=== PATIENT | male | born 1970 | race Caucasian/White ===

== ENCOUNTER 2016-12-29 11:43 | Emergency (ER) | payer MEDICAID, OTHER ==
[~2016-12-29] VITALS: Ht 180.3 cm; Wt 145.0 kg
[2016-12-29 11:46] VITALS: BP 137/85; PULSE 86; RESP 20; TEMP 98.2; O2SAT 98
[2016-12-29] MEDS ORDERED: KETOROLAC TROMETHAMINE 60 MG/2 ML (IM) VIAL IM ONE (13:00)
[2016-12-29] MEDS ORDERED: IBUP800T23 PO (13:29)
--- NOTE | 2016-12-29 13:34 | RADRPT ---
EXAM DATE/TIME: 12/29/2016 13:09 [facility] COMPARISON: No previous studies available for comparison. INDICATIONS : Numbness and pain in his right hand, no known trauma. MEDICAL HISTORY : None. SURGICAL HISTORY : None. ENCOUNTER: Initial ACUITY: 3 weeks PAIN SCORE: 3/10 LOCATION: Right hand FINDINGS: Three view examination of the right hand demonstrates no soft tissue swelling, dislocation, or fractu re. The carpal bones appear intact. The interphalangeal and metacarpophalangeal joints are intact. Bony mineralization is normal. CONCLUSION: No acute disease. Walter Gunter MD on December 29, 2016 at 13:32 Board Certified Radiologist. This report was verified electronically.
--- NOTE | 2016-12-29 13:42 | PD ---
HPI Chief Complaint: Numbness/Tingling Time Seen by Provider: 13:35 Travel History International Travel<30 days: No Contact w/Intl Traveler<30days: No Traveled to known affect area: No History of Present Illness HPI 46-year-old male that presents to the ED for evaluation of numbness and tingling to his right index and middle finger. Per patient she's had this for almost 3 weeks now. Per patient she initially noticed this about a year ago he had surgery on his right knee. Per patient after she noted that he had something into his right middle finger. Per patient he is diabetic and he is concerned that this could be related to his diabetes. He states that the symptoms usually use to improve on their own but this time he has not. Per patient he comes and goes but is more numb now. Per patient he got concerned because starts spreading to his index and his thumb as well as the ring finger. 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 He denies any injuries or falls. No fevers chills or sweats. Per patient he recently moved here from [place]. He has no other medical issues. He states that his pain currently is 4 out of 10. PFSH Past Medical History Hx Anticoagulant Therapy: Yes (ASA) Cardiovascular Problems: Yes (HTN) High Cholesterol: Yes Diabetes: Yes (METFORMIN) Patient Takes Glucophage: Yes Diminished Hearing: No Hypertension: Yes Sleep Apnea: Yes Tetanus Vaccination: Unknown Past Surgical History Other Surgery: Yes (TONSILECTOMY ) Social History Alcohol Use: Yes (OCC) Tobacco Use: No (QUIT 2 YEAR AGO) Substance Use: No Allergies-Medications (Allergen,Severity, Reaction): Coded Allergies: Contrast Media (Verified Allergy, Severe, SWELLING, RASH, 12/29/16) Seafood (Verified Allergy, Severe, 12/29/16) Penicillin (Verified Allergy, Unknown, 12/29/16) Reported Meds & Prescriptions Reported Meds & Active Scripts Active Ibuprofen 800 Mg Tab 800 Mg PO Q8H PRN Review of Systems Except as stated in HPI: all other systems reviewed are Neg Physical Exam Narrative GENERAL: SKIN: Warm and dry. HEAD: Atraumatic. Normocephalic. EYES: Pupils equal and round. No scleral icterus. No injection or drainage. ENT: No nasal bleeding or discharge. Mucous membranes pink and moist. Tongue is midline. No uvula deviation. NECK: Trachea midline. No JVD. CARDIOVASCULAR: Regular rate and rhythm. No murmurs, S3, S4. RESPIRATORY: No accessory muscle use. Clear to auscultation. Breath sounds equal bilaterally. GASTROINTESTINAL: Abdomen soft, non-tender, nondistended. Hepatic and splenic margins not palpable. MUSCULOSKELETAL: Extremities without clubbing, cyanosis, or edema. No obvious deformities. Full range of motion of all fingers of the right hand. Patient able to make a fist. 5 out of 5 strength. Subjective numbness noted on the third, second, first as well as half of the fourth digit. Following median nerve distribution. Phalens test positive on the right side. 2+ pulses with good capillary refill. NEUROLOGICAL: Awake and alert. No obvious cranial nerve deficits. Motor grossly within normal limits. Five out of 5 muscle strength in the arms and legs. Normal speech. PSYCHIATRIC: Appropriate mood and affect; insight and judgment normal. Data Data Last Documented VS Vital Signs Date Time Temp Pulse Resp B/P Pulse Ox O2 Delivery O2 Flow Rate FiO2 12/29/16 11:46 98.2 86 20 137/85 98 Room Air Orders Ketorolac Inj (Toradol Inj) (12/29/16 13:00) Hand, Complete ([id number]) (12/29/16 ) Splint Or Brace Apply/Monitor (12/29/16 12:50) MDM Medical Decision Making Medical Screen Exam Complete: Yes Emergency Medical Condition: Yes Medical Record Reviewed: Yes Interpretation(s) hand xray negative Differential Diagnosis Carpal tunnel versus peripheral neuropathy versus bony injury versus arthritis versus normal exam Narrative Course 46-year-old male that presents to the ED for evaluation of right hand numbness. Patient was properly examined and was found to have signs and symptoms consistent what appears to be carpal tunnel syndrome. No sign of acute medical distress. X-ray was done to any sign of bony injury. X-ray was negative. Patient was reassured. This time patient will be put on a brace. Given prescription for ibuprofen to help with the swelling and nerve pain. He was told that this before she will take some time to heal. He was told to follow with hand surgeon once he gets insurance. See ED for worsening symptoms. Given information for outpatient clinics. Diagnosis Primary Impression: Carpal tunnel syndrome Qualified Code: G56.01 - Carpal tunnel syndrome of right wrist Referrals: Opal Dowling MD [facility] Patient Instructions: General Instructions Additional Instructions: Take medication as prescribed. Follow with hand surgeon. See ED worsening symptoms. Use brace until symptoms completely get better. He continues this daily especially at night. Ice or warm compresses. See ED worsening symptoms. Med/Other Pt SpecificInfo: Prescription(s) given Scripts Ibuprofen 800 Mg Ume145 Mg PO Q8H PRN (Pain/Inflammation) #30 TAB Prov:Namita Schulte MD 12/29/16 Disposition: 01 DISCHARGE HOME Condition: Stable Jacob Guo Dec 29, 2016 13:42
== END 2016-12-29 15:10 | disposition home or self-care (01) ==
LOC: NEPD 11:43
DX: G56.01 Carpal tunnel syndrome, right upper limb (principal); I10 Essential (primary) hypertension; E78.00 Pure hypercholesterolemia, unspecified; E11.9 Type 2 diabetes mellitus without complications; Z87.891 Personal history of nicotine dependence
CPT/HCPCS: 73130; 96372; 99284; J1885; L3908

== ENCOUNTER 2017-06-10 11:23 | Emergency (ER) | payer MEDICAID, OTHER ==
[~2017-06-10] VITALS: Ht 180.3 cm; Wt 145.0 kg
[2017-06-10 11:24] VITALS: BP 144/90; PULSE 103; RESP 18; TEMP 99.1; O2SAT 96
--- NOTE | 2017-06-10 12:32 | RADRPT ---
EXAM DATE/TIME: 06/10/2017 12:01 [facility] COMPARISON: No previous studies available for comparison. INDICATIONS : Short of breath, chest pain MEDICAL HISTORY : hx of asbestos exposure. SURGICAL HISTORY : None. ENCOUNTER: Initial ACUITY: 1 week PAIN SCORE: 6/10 LOCATION: Bilateral chest FINDINGS: There is perihilar airspace disease and peribronchial thickening. No effusion. Heart size within norm al limits. CONCLUSION: 1. Perihilar airspace disease with some peribronchial thickening. Primary differential diagnosis is b ronchopneumonia. Dewey Cavazos MD on June 10, 2017 at 12:29 Board Certified Radiologist. This report was verified electronically.
[2017-06-10] MEDS ORDERED: ZITHTAB PO (12:53)
[2017-06-10] MEDS ORDERED: GUAI10TA PO (12:53)
--- NOTE | 2017-06-10 13:32 | PD ---
HPI . Cough Chief Complaint: Cold / Flu Symptoms Time Seen by Provider: 11:50 Travel History International Travel<30 days: No Contact w/Intl Traveler<30days: No Traveled to known affect area: No History of Present Illness HPI This patient presents with chief complaint of cough. He reports the onset of symptoms about 2 weeks ago of an upper respiratory infection consisting of watery eyes, rhinorrhea, sore throat. He states that he saw his primary care provider who instructed him to use [id number] medications. He states that he did this. The upper respiratory infection subsequent cleared but moved into his chest. He states he's had the chest cold for about a week. He states that he's been producing sputum for about the last 3 days and he started running a fever and developed left-sided chest discomfort with breathing and coughing yesterday. His cough is exacerbated by lying down and moving around. His symptoms are mild. He has a history of asthma and uses an albuterol inhaler as needed. PFSH Past Medical History Hx Anticoagulant Therapy: Yes (ASA) Asthma: Yes Cardiovascular Problems: Yes (HTN, hyperlipidemia) High Cholesterol: Yes Diabetes: Yes Patient Takes Glucophage: Yes Diminished Hearing: No Hypertension: Yes Respiratory: Yes (asthma) Sleep Apnea: Yes Past Surgical History Other Surgery: Yes (TONSILECTOMY ) Social History Alcohol Use: Yes (OCC) Tobacco Use: Yes Substance Use: No Allergies-Medications (Allergen,Severity, Reaction): Coded Allergies: Fish Containing Products (Unverified Allergy, Severe, 01/20/17) diatrizoate meglumine (Unverified Allergy, Severe, SWELLING, RASH, 01/20/17 ) gadobenic acid (Unverified Allergy, Severe, SWELLING, RASH, 01/20/17) gadodiamide (Unverified Allergy, Severe, SWELLING, RASH, 01/20/17) gadoteridol (Unverified Allergy, Severe, SWELLING, RASH, 01/20/17) iodixanol (Unverified Allergy, Severe, SWELLING, RASH, 01/20/17) iohexol (Unverified Allergy, Severe, SWELLING, RASH, 01/20/17) penicillin G (Unverified Allergy, Unknown, 01/20/17) Reported Meds & Prescriptions Reported Meds & Active Scripts Active Guaifenesin ER 12 HR (Guaifenesin) 1,200 Mg Rebecca 1,200 Mg PO BID Zithromax Z-Stoney (Azithromycin) 250 Mg Dspk 250 Mg PO DIRECTED 500 MG (2 tabs) day 1, then 1 tab days 2-5. Review of Systems Except as stated in HPI: all other systems reviewed are Neg General / Constitutional: Positive: Fever, Chills Respiratory: Positive: Cough Physical Exam Narrative GENERAL: Awake and alert and in no acute distress. SKIN: Warm and dry. Good color and turgor. HEAD: Normocephalic/atraumatic. EYES: Pupils are equal. Extraocular movements are intact. NECK: Normal range of motion. CARDIOVASCULAR: Regular rate and rhythm. RESPIRATORY: Nonlabored respirations. Lungs sound clear with good air movement throughout. MUSCULOSKELETAL: Atraumatic. NEUROLOGICAL: Nonfocal. PSYCHIATRIC: Appropriate mood and affect. Data Data Last Documented VS Vital Signs Date Time Temp Pulse Resp B/P (MAP) Pulse Ox O2 Delivery O2 Flow Rate FiO2 06/10/17 11:24 99.1 103 18 144/90 (108) 96 Room Air Orders Orders Chest, Pa & Lat (06/10/17 11:52) Ed Discharge Order (06/10/17 12:53) MDM Medical Decision Making Medical Screen Exam Complete: Yes Emergency Medical Condition: Yes Differential Diagnosis Differential diagnosis includes but is not limited to viral respiratory illness , bronchitis, pneumonia, allergies, CHF, asthma/COPD. Narrative Course This patient presents with a cough. He has had respiratory symptoms for the last 2 weeks. His symptoms started getting worse about 3 days ago with sputum production, chest pain and fever. Therefore, a chest x-ray was done. Last Impressions Chest X-Ray 06/10/17 1152 Signed Impressions: Service Date/Time: Saturday, June 10, 2017 12:01 - CONCLUSION: 1. Perihilar airspace disease with some peribronchial thickening. Primary differential diagnosis is bronchopneumonia. Dewey Cavazos MD X-ray results were shared with the patient. This patient's lungs are clear. He is having no respiratory distress. He will be treated as an outpatient with Zithromax. I have also given him a prescription for guaifenesin. He is to continue his albuterol inhaler as needed. Diagnosis Primary Impression: Bronchopneumonia Referrals: [facility] Patient Instructions: General Instructions, Pneumonia (ED) Departure Forms: Tests/Procedures Scripts Guaifenesin ER 12 HR (Guaifenesin ER 12 HR) 1,200 Mg Rebecca 1200 MG PO BID for Chest Congestion/Cough, #60 TAB 0 Refills Prov: Namita Schulte MD 06/10/17 Azithromycin (Zithromax Z-Stoney) 250 Mg Dspk 250 MG PO DIRECTED for Infection, #1 DSPK 0 Refills 500 MG (2 tabs) day 1, then 1 tab days 2-5. Prov: Namita Schulte MD 06/10/17 Disposition: 01 DISCHARGE HOME Condition: Stable Namita Schulte MD Jun 10, 2017 13:32
== END 2017-06-10 14:04 | disposition home or self-care (01) ==
LOC: NEPD 11:23
DX: J18.0 Bronchopneumonia, unspecified organism (principal); J45.909 Unspecified asthma, uncomplicated; E11.9 Type 2 diabetes mellitus without complications; E78.00 Pure hypercholesterolemia, unspecified; I10 Essential (primary) hypertension; Z72.0 Tobacco use
CPT/HCPCS: 71046; 99283